=== PATIENT | male | born 1955 ===

== ENCOUNTER → 2020-10-25 | Outpatient (CLI) | payer SELFPAY ==
[~2020-10-25] MED LIST: COVID-19 VACCINE (PFIZER)/PF 30 MCG/0.3 ML VIAL IM ONE; EPINEPHRINE INJ/PF 1 MG/1 ML AMPULE IM PRN
--- OUTSIDE RECORDS SUMMARY | 2020-10-28 10:30 | XMS REPORT ---
:1955 Author Organization [facility] Address [facility] [address] [place] [id number] Care Team Providers Name Role Phone Cristofer Gabi Hardy Primary Care Physician Unavailable Mohamud BROWN Attending Clinician Unavailable Allergies, Adverse Reactions, Alerts This patient has no known allergies or adverse reactions. Medications Ordered Filled Start Stop Current Ordering Indication Dosage Frequency Signature Comments Components Medication Medication Date Date Medication? Clinician (SIG) Name Name Omeprazole 2019-10 Yes Gabi Q0.5D Omeprazole 20 MG Oral 2-21 Cristofer D.O. 20 MG Oral Capsule 11:17: Capsule Delayed 21 Delayed Release Release TAKE 1 CAPSULE BY MOUTH TWICE A DAY Quantity: 180 Refills: 0 Cristofer D.O., Gabi Start : 0Active Baclofen 20 2019-10 Yes Gabi Baclofen MG Oral 2-07 Cristofer D.O. 20 MG Oral Tablet 16:53: Tablet 39 take 1 tablet by mouth once daily at bedtime Quantity: 90 Refills: 1 Cristofer D.O., Gabi Start : 08-Sep-2020 Active Atenolol 25 2019-10 Yes Gabi Q0.5D Atenolol MG Oral 2-07 Cristofer D.O. 25 MG Oral Tablet 09:52: Tablet 56 TAKE 1 TABLET BY MOUTH TWICE A DAY Quantity: 180 Refills: 1 Cristofer D.O., Gabi Start : 08-Sep-2020 Active Loratadine 2019- Yes Gabi Loratadine 10 MG Oral 9-10 Cristofer D.O. 10 MG Oral Tablet 00:00: Tablet 00 Take 1 tablet daily for allergies. Quantity: 30 Refills: 5 Cristofer D.O., Gabi Start : 0Active amLODIPine 2019-0 Yes Gabi QD amLODIPine Besylate 5 9-10 Cristofer D.O. Besylate 5 MG Oral 00:00: MG Oral Tablet 00 Tablet TAKE 1 TABLET DAILY FOR BLOOD PRESSURE. Quantity: 30 Refills: 5 Cristofer D.O., Gabi Start : 0Active Baclofen 20 2020-0 No Gabi Baclofen MG Oral 5-10 Cristofer D.O. 20 MG Oral Tablet 00:00: Tablet 00 TAKE 1 TABLET AT BEDTIME. Quantity: 90 Refills: 1 Cristofer D.O., Gabi Start : 0Active Baclofen 20 2019-0 No Gabi Baclofen MG Oral 5-10 Cristofer D.O. 20 MG Oral Tablet 00:00: Tablet 00 TAKE 1 TABLET AT BEDTIME. Quantity: 90 Refills: 1 Cristofer D.O., Gabi Start : 0Active Methotrexat 2020-0 Yes Methotrexa e 2.5 MG 4-27 te 2.5 MG Oral Tablet 00:00: Oral 00 Tablet TAKE 5 TABLETS WEEKLY. Refills: 0 Start : 0Active Atorvastati 2019-0 Yes Atorvastat n Calcium 4-08 in Calcium 10 MG Oral 00:00: 10 MG Oral Tablet 00 Tablet Quantity: 90 Refills: 0 Start : 09-Jan-2020 Active Omeprazole 2020-0 No Q0.5D Omeprazole 20 MG Oral 3-30 20 MG Oral Capsule 00:00: Capsule Delayed 00 Delayed Release Release TAKE 1 CAPSULE TWICE DAILY. Refills: 0 Start : 0Active Atenolol 25 2020-0 No Q0.5D Atenolol MG Oral 3-06 25 MG Oral Tablet 00:00: Tablet 00 TAKE 1 TABLET TWICE DAILY. Refills: 0 Start : 07-Dec-2019 Active Orencia Yes Orencia SOLN SOLN Pt takes 750 mg Refills: 0 Active Vitamin D Yes Vitamin D 1000 UNIT 1000 UNIT TABS TABS Refills: 0 Active Vitamin Yes Vitamin B-12 500 B-12 500 MCG Oral MCG Oral Tablet Tablet Refills: 0 Active Problems Condition Condition Condition Status Onset Resolution Last Treatin g Comments Name Details Category Date Date Treatment Clinician Date Rheumatoid Rheumatoid Problem Active arthritis arthritis Hypercholes Hypercholes Problem Active terolemia terolemia GERD GERD Problem Active (gastroesop (gastroesop hageal hageal reflux reflux disease) disease) B12 B12 Problem Active deficiency deficiency Prostate Prostate Problem Active cancer cancer screening screening Hypertensio Hypertensio Problem Active n n Chronic Chronic Problem Active cough cough Verruca Verruca Problem Active vulgaris vulgaris Skin lesion Skin lesion Problem Active of face of face Allergic Allergic Problem Active rhinitis rhinitis Not on file Not on file [id number] Procedures Procedure Date / Time Performed Performing Clinician Jimena kauffman XR-Chest(Pa&Lat) 2020-06-12 00:00:00 History of Back surgery History of Knee surgery History of Hip replacement History of Carpal tunnel surgery History of Corneal lasik History of Foot surgery History of Mohs surgery Results Test Description Test Time Test Comments Text Results Atomic Results Result Comments XR-Chest(Pa&Lat) 2020-06-12 12:07:00 An image is avaliable in [employer], click link to view image Assessments Condition Name Status Diagnosis Date Treating Clinici an Allergic rhinitis Active Rheumatoid arthritis Active Chronic cough Active Hypercholesterolemia Active GERD (gastroesophageal reflux disease) Active B12 deficiency Active Hypertension Active Rheumatoid arthritis Active Family history of asthma Active Hypercholesterolemia Active Family history of prostate cancer Active Family history of cancer Active Prostate cancer screening Active Family history of hypertension Active Family history of epilepsy Active Former smoker Active GERD (gastroesophageal reflux disease) Active B12 deficiency Active Hypertension Active Does not drink alcohol Active Chronic cough Active Rheumatoid arthritis Active Verruca vulgaris Active Hypercholesterolemia Active GERD (gastroesophageal reflux disease) Active Allergic rhinitis Active Skin lesion of face Active Hypertension Active Hypertension Active Encounters Start End Encounter Admission Attending Care Care Encounter ID Date/Time Date/Time Type Type Clinicians Facility Department 2020-10-27 2020-10-27 [facility] [id number] 14:30:00 14:46:46 ; Genoveva Mallory MD 2020-07-09 2020-07-09 Appointment [facility] [id number] 11:45:00 11:45:00 ; Gabi Cleveland D.O. 2020-06-12 2020-06-12 Appointment [facility] [id number] 11:50:00 11:50:00 ; Juan Diego Coleman 2020-06-12 2020-06-12 Appointment [facility] PAUriah [id number] 11:00:00 11:00:00 ; Gabi Cleveland D.O. 2020-02-22 2020-02-22 [facility] [id number] 15:00:00 15:00:00 ; Gabi Cleveland D.O. 2019-12-20 2019-12-20 Outpatient [facility] [id number] 00:00:00 00:00:00 Family History Family Member Diagnosis Comments Start Date Stop Date Brother Family history of asthma Brother Family history of epilepsy Brother Family history of cancer Mother Family history of hypertension Father Family history of hypertension Father Family history of prostate cancer Father Family history of Rheumatoid arteritis Sister Family history of asthma Immunizations Ordered Immunization Filled Immunization Date Status Commen ts Refusal Reason Name Name Zoster (Zostavax) 2019-02-21 Completed 00:00:00 Plan of Treatment Planned Activity Planned Date Details Comments Future Scheduled Test [code = ] Future Scheduled Test [code = ] Future Scheduled Test [code = ] Future Scheduled Test [code = ] Future Scheduled Test [code = ] Future Scheduled Test [code = ] Future Scheduled Test [code = ] Future Scheduled Test [code = ] Social History Smoking Status Start Date Stop Date Ex-smoker (finding) Vital Signs Vital Name Observation Time Observation Value Comments Systolic blood pressure 2020-10-27 14:24:00 154 mm[Hg] Diastolic blood pressure 2020-10-27 14:24:00 81 mm[Hg] Body height 2020-10-27 14:24:00 68 [in_us] Weight 2020-10-27 14:24:00 206.5 [lb_av] Body mass index (BMI) [Ratio] 2020-10-27 14:24:00 31.4 kg/m2 Body temperature 2020-10-27 14:24:00 96.2 [degF] Heart Rate 2020-10-27 14:24:00 67 /min Respiratory rate 2020-10-27 14:24:00 16 /min O2 SAT 2020-10-27 14:24:00 96 % Systolic blood pressure 2020-07-09 11:56:00 148 mm[Hg] Diastolic blood pressure 2020-07-09 11:56:00 84 mm[Hg] Body height 2020-07-09 11:56:00 68 [in_us] Weight 2020-07-09 11:56:00 202.375 [lb_av] Body mass index (BMI) [Ratio] 2020-07-09 11:56:00 30.77 kg/m2 Body temperature 2020-07-09 11:56:00 97.8 [degF] Heart Rate 2020-07-09 11:56:00 64 /min Systolic blood pressure 2020-06-12 11:39:00 150 mm[Hg] Diastolic blood pressure 2020-06-12 11:39:00 78 mm[Hg] Systolic blood pressure 2020-06-12 10:55:00 150 mm[Hg] Diastolic blood pressure 2020-06-12 10:55:00 80 mm[Hg] Body height 2020-06-12 10:55:00 68 [in_us] Weight 2020-06-12 10:55:00 203.5 [lb_av] Body mass index (BMI) [Ratio] 2020-06-12 10:55:00 30.94 kg/m2 Body temperature 2020-06-12 10:55:00 97.1 [degF] Heart Rate 2020-06-12 10:55:00 68 /min Hospital Discharge Instructions NameDatesDetailsInstructions not documentedNameDatesDetailsInstructions not documentedNameDatesDetailsInstructions not documented NameDatesDetailsInstructions not documented
== END ==
LOC: EMPHEALTH 15:22
PROVIDERS: ATTEND Internal Medicine
DX: Z23 Encounter for immunization (principal)
CPT/HCPCS: 91300